=== PATIENT | male | born 1955 | race Caucasian/White ===

== ENCOUNTER 2019-02-03 16:07 | Inpatient (IN) ==
--- NOTE | 2019-02-03 17:09 | Emergency Department Note ---
ED Disposition Clinical Impression: Acute appendicitis Qualifiers: Acute appendicitis type: with localized peritonitis Appendicitis gangrene presence: without gangrene Appendicitis perforation presence: with perforation Appendicitis abscess presence: with abscess Qualified Code(s): K35.33 - Acute appendicitis with perforation and localized peritonitis, with abscess Disposition: Admitted As Inpatient Condition on Discharge: Fair - Critical Care Critical Care Time: No Attestation: On 02/03/19, the high probability of a clinically significant, sudden or life threatening deterioration of the following system(s) required my full and direct attention, intervention and personal management. The time I documented below is in addition to time spent performing reported procedures but includes the following listed in this critical care notation. Medical Decision Making - [place] Inquiry Pt receiving controlled substance: No Vital Signs: 02/03/19 16:22 02/03/19 17:52 02/03/19 19:13 Temperature 99.9 F H 99.9 F H Temperature Source Oral Oral Pulse Rate 80 Pulse Rate [Right Brachial] 108 H 80 Respiratory Rate 16 18 18 Blood Pressure 116/63 Blood Pressure [Right Arm] 116/63 116/63 Blood Pressure Mean [Right Arm] 80 80 Blood Pressure Source Automatic Cuff Blood Pressure Source [Right Arm] Automatic Cuff Automatic Cuff Blood Pressure Position Sitting Blood Pressure Position [Right Arm] Sitting Supine 02 Sat by Pulse Oximetry 98 99 Oxygen Delivery Method Room Air Room Air Room Air - Lab Data Lab Results 02/03/19 16:40: Amylase 32, Lipase 58 L Orders (Tests/Meds): ED MEDICATIONS Generic Name Dose Route Start Last Admin Trade Name Freq PRN Reason Stop Dose Admin Hydrocodone Bitart/Acetaminophen 1 - 2 tab 02/03/19 19:22 [place] 5/325mg Tablet PO 03/05/19 19:21 Q4HP PRN pain Cyclobenzaprine HCl 10 mg 02/03/19 21:00 Flexeril 10mg Tablet PO 03/05/19 20:59 TID ARIA Ampicillin Sodium/Sulbactam 100 mls @ 200 mls/hr 02/03/19 19:18 02/03/19 19:25 Sodium 3 gm/ Sodium Chloride IV 02/03/19 19:19 200 mls/hr ONCE ONE Administration Protocol Lactated Ringer's 1,000 mls @ 150 mls/hr 02/03/19 19:30 Lactated Ringer's 1000 Ml Bag IV 03/05/19 19:29 .Q6H40M ARIA Piperacillin Sod/Tazobactam 100 mls @ 200 mls/hr 02/03/19 19:30 Sod 4.5 gm/ Sodium Chloride IV 02/17/19 19:29 Q6H ARIA Protocol Morphine Sulfate 1 mg 02/03/19 19:24 Morphine 2mg/Ml Syringe IV 03/05/19 19:23 Q1HP PRN Moderate to Severe Pain Ondansetron HCl 4 mg 02/03/19 19:22 Zofran 4mg/2ml Vial IV 03/05/19 19:21 Q6HP PRN Nausea Discontinued Medications Generic Name Dose Route Start Last Admin Trade Name Freq PRN Reason Stop Dose Admin Sodium Chloride 1,000 mls @ 999 mls/hr 02/03/19 17:00 Sod Chlor 0.9% 1000ml Bag IV 02/03/19 18:00 .Q1H1M ARIA Morphine Sulfate 2 mg 02/03/19 19:20 Morphine 2mg/Ml Syringe IV 03/05/19 19:19 Q2HP PRN Moderate to Severe Pain ORDERS Category Date Time Status Basic Metabolic Panel Routine Lab 02/04/19 06:00 Ordered Complete Blood Count Auto Diff Routine Lab 02/04/19 06:00 Ordered - CT Data CT Scan: Abdomen, Pelvis Time Received: 17:[address] Reviewed: Yes: I discussed the CT results w/the radiologist, I have viewed the radiologist's interpretation Findings Narrative: FINDINGS: Study is performed without IV and oral contrast Lower thorax: There are atelectatic changes in the right lung base with a bandlike area of increased density in the right lower lobe with elevated right hemidiaphragm. This bandlike area could be related to an area of dense consolidation or some loculated fluid in the major fissure. The right hemidiaphragm is elevated. There is mild fatty liver infiltration. The gallbladder, spleen, adrenal glands, and pancreas have an unremarkable appearance. No renal or ureteral calculi. There stranding of the perinephric renal fat on both sides with bilateral exophytic hyperdensities of the kidneys measuring up to 1.5 cm in the upper pole anteriorly on the left and 1 cm in upper pole on the right. Exophytic isodense lesion is present in the lower pole on the right laterally at 1.6 cm possibly due to a cyst. There is loculated fluid with interspersed gas within the right pericolic gutter which extends from the cecal area of the right lower quadrant. What appears to represent the appendix is thickened which is contiguous with the collection ascending in the right pericolic gutter. This may represent appendicitis with perforation. The pericolic fluid collection extend cephalad for approximately 12 cm measuring up to 1.6 cm in thickness and 4 cm in AP dimension. There are fluid-filled loops of small bowel in the pelvis as well as air-fluid levels in the transverse colon and descending colon. The bowel is not significantly distended. Findings may represent ileus. There diverticulosis of the descending and sigmoid colon. No acute bony finding. The prostate is enlarged at 5 cm. Urinary bladder is decompressed. IMPRESSION: 1. Overall, the findings are suspicious for appendicitis with perforation with small right pericolic gutter abscess. These findings may be confirmed with repeat exam with both IV and oral contrast. 2. Elevated right hemidiaphragm with small amount of fluid in the right major fissure inferiorly versus dense consolidation with right basilar atelectasis. The 3. Bilateral complex renal nodules. Renal ultrasound suggested for further evaluation 4. Ileus Dictated by: Jamin Laguna MD 02/03/2019 17:40 Electronically signed by Jamin Laguna MD in [place] 02/03/2019 17:40 - Physician Consults Physician Consulted: Suleiman Time: 17:50 Reason -: Surgical Eval/Care Comment/Response: Call in surgical team. General Adult HPI - General Chief complaint: PAIN Stated complaint: Pain in Side/Fever/Nausea Time Seen by Provider: 02/03/19 17:09 Mode of Arrival: Ambulatory Limitations: No Limitations Description of Symptoms (Recalled from ER Triage Doc. by RN): Right side abdominal pain - History of Present Illness HPI narrative: Patient states he is sick since Saturday night. He has right-sided abdominal pain that hurts "with certain movements". He has had significant amount of diarrhea, 3 episodes today. No blood in his diarrhea. No vomiting. He has had a fever up to 102.5 [address] He saw Dr. Bush is a nurse practitioner in the office today and was sent to the lab for blood work. Then sent to the emergency room. - Related Data Home Medications Medication Instructions Recorded Confirmed Ciprofloxacin HCl [Cipro 500mg 500 mg PO BID 02/03/19 02/03/19 Tab] Cyclobenzaprine HCl 10 mg PO TID 02/03/19 02/03/19 [Cyclobenzaprine 10mg Tab] Allergies Allergy/AdvReac Type Severity Reaction Status Date / Time No Known Allergies Allergy Verified 02/03/19 16:[address] [facility] History - Hepatitis A Screen Drug use history?: No High risk sexual behaviors?: No History of sexually transmitted infection?: No Currently employed?: No Childcare worker?: No Do you have indoor plumbing?: Yes Do you have electricity?: Yes Attestation statement:: This patient has been screened for Hepatitis A risk factors. I have reviewed the patient's past medical history: Yes ROS Obtained: Yes All systems reviewed & no additional complaints - Constitutional Constitutional: Reports fever(s) - Cardiovascular Cardiovascular: Denies chest pain - Respiratory Respiratory: No dyspnea - Gastrointestinal Gastrointestingal: Reports: abdominal pain, diarrhea. Denies: bright red blood in stools, vomiting - Genitourinary Male Genitourinary: Denies difficulty urinating, Denies flank pain, Denies hematuria Physical Exam - General General appearance: alert, in no apparent distress - Head Head exam: atraumatic, normocephalic - Eye Eye exam: Present: normal appearance, EOMI - ENT ENT exam: Present: mucous membranes moist - Neck Neck exam: Present: normal inspection, trachea midline - Chest Chest inspection: Present: normal inspection, symmetric chest wall rise - Respiratory Respiratory exam: Present: normal lung sounds bilaterally. Absent: respiratory distress - Cardiovascular Cardiovascular exam: Present: regular rate, normal rhythm, normal heart sounds - Abdominal Exam Abdominal exam: Present: tenderness, guarding, normal bowel sounds. Absent: distention Abdominal tenderness: Present: RUQ, RLQ - Extremities Exam Extremities exam: Present: normal inspection - Back Exam Back exam: Absent: CVA tenderness (R), CVA tenderness (L) - Neurological Exam Neurological exam: Present: alert, oriented X3 - Psychiatric Psychiatric exam: Present: normal affect, normal mood
[2019-02-03 17:24] LABS: Amylase 32 U/L (25-115)
--- NOTE | 2019-02-03 20:55 | Operative Note ---
Date of procedure: 02/03/19 Pre-op Diagnosis:: Perforated appendicitis Post-op Diagnosis:: Perforated appendicitis with fulminant necrosis of the appendix and severe suppurative changes of all surrounding tissue Procedure performed:: Laparoscopic appendectomy Surgeon:: Chauncey Bearden MD MORTGAGE OR LOAN UNDERWRITER:: Ronald Correa Anesthesia: GETA Estimated blood loss (mL): 50 Operative findings:: Fulminant appendiceal necrosis with perforation and surrounding abscess cavity. Severe suppurative changes of colon and small bowel surrounding appendix. Small appendiceal stump appeared viable...controlled with Endoloops (x2). Serosal injury to cecum with patchy areas of "bruising". No definitive full- thickness necrosis. Operative note:: After informed consent was obtained the patient was taken to the operating room and placed in the supine position. General anesthesia was induced and his abdomen was prepped and draped in a sterile fashion. After infiltration with local anesthetic an infraumbilical incision was made. A Veress needle was placed in position. The abdomen was insufflated. A 12 mm optical trocar was placed in position. Under direct visualization a 5 mm trocar was placed in the suprapubic position and an additional 5 mm trocar was placed in the left lower quadrant. Evaluation of the right lower quadrant revealed severe suppurative changes surrounding the small bowel and colon. The appendix was not immediately visible and careful dissection was utilized to maneuver the periappendiceal tissue. Blunt dissection with the suction park keeper was utilized to free the tissue surrounding the appendix that was very posterior and embedded within periappendiceal tissue to include cecum and small bowel. The cecum and small bowel did have patchy suppurative changes and serosal rents. No full-thickness injury was noted. Patchy "bruising" of the cecum was noted. A fairly large pocket of purulence within the right flank was carefully suctioned and then copious irrigation were utilized. Essentially, all the irrigation was suctioned away from surrounding tissue. No additional pockets of purulence were visu alized. Fulminant appendiceal necrosis was noted. The base was transected with harmonic talib and the appendiceal tissue was from all surrounding tissue and placed in a retrieval bag. The appendix (appendiceal tissue) was then passed off for pathologic evaluation. The right lower quadrant was thoroughly irrigated. No active bleeding was noted. No obvious injury to the small bowel was noted. The appendiceal stump did appear to have enough viable tissue 2 accept Endoloops and these were placed in position (x2). Close inspection of the cecum did show minor serosal damage and "bruising". No definitive full-thickness necrosis was appreciable and the decision to forego ileocecectomy was made. Once again, the right lower quadrant was thoroughly irrigated. No obvious injury or additional pockets of purulence were noted. No active bleeding was noted. Pneumoperitoneum was released. The fascia at the infraumbilical incision was reapproximated with interrupted 0 Ethibond. The remaining trochars were removed and the wounds were packed open. Dressings were applied and the patient was transferred to recovery in stable condition. Condition: stable Disposition: PACU Specimens:: Appendix Complications:: No immediate
[2019-02-04 06:17] LABS: Basophils % 0.1 % (0.1-2.0); Eosinophils % 0.1 % (0.1-12.0); Hematocrit 41.6 % (42.0-52.0); Lymphocytes # 0.7 K/mm3 (0.7-4.5); Lymphocytes % 3.6 % (10-50); Mean Corpuscular HGB Conc 31.3 g/dL (31.8-35.4); Mean Corpuscular Volume 91.7 fl (80-94); Monocytes # 0.8 K/mm3 (0.1-1.0); Neutrophils # 17.4 K/mm3 (1.8-7.8); Neutrophils % 92.3 % (37.0-80.0); Platelet Count 283 K/mm3 (142-424); Red Blood Count 4.54 M/mm3 (4.60-6.20); Red Cell Distribution Width 13.9 % (11.5-17.5); White Blood Count 18.9 K/mm3 (4.8-10.8)
[2019-02-04 06:51] LABS: Anion Gap 11.9 mEq/L (5-15); Calcium 8.3 mg/dL (8.5-10.1)
--- NOTE | 2019-02-04 07:30 | Pharmacy Consult Notes ---
[facility] Pharmacy VTE Monitoring - Patient Demographics Admission date: 02/04/19 Report Date: 02/04/19 Time: 07:30 Allergies/Adverse Reactions: Patient Allergies No Known Allergies Allergy (Verified 02/03/19 16:28) Height: 1.83 m Weight: 97.069 kg Patient Problems: Current Active Problems Acute appendicitis (Acute) - VTE Risk Labs: VTE Related Lab Results Hct 41.6 % (42.0-52.0) L 02/04/19 06:03 Plt Count 283 K/mm3 (142-424) 02/04/19 06:03 BUN 38 mg/dL (7-18) H 02/04/19 06:03 Creatinine 1.92 mg/dL (0.70-1.30) H 02/04/19 06:03 Estimated Creat Clear 53 mL/min (50-200) 02/04/19 06:03 Was VTE Risk Assessment Performed: Yes VTE Score: 5 VTE Risk Level: Low Risk Clinical Trial Participant: No - Prophylaxis VTE Prophylaxis Ordered?: Yes Types of VTE Prophylaxis: IPCS Knee High Location of Applied Device: Bilateral Lower Extremeties
--- NOTE | 2019-02-04 08:11 | Progress Note ---
Subjective Patient reports: no new complaints Exam Vital signs and Labs for Last 24 Hours: Temp Pulse Resp BP Pulse Ox 98.6 F 84 18 142/78 H 89 L 02/04/19 04:25 02/04/19 04:25 02/04/19 04:25 02/04/19 04:25 02/04/19 06:30 Laboratory Results - last 24 hr 02/03/19 16:40: Amylase 32, Lipase 58 L 02/03/19 19:30: Urine Color Yellow, Urine Appearance Clear, Urine pH 5.0, Ur Specific [place] >= 1.030, Urine Protein 2+, Urine Glucose (UA) Negative, Urine Ketones Trace, Urine Blood 3+, Urine Nitrate Positive, Urine Bilirubin Negative, Urine Urobilinogen 1.0, Ur Leukocyte Esterase Trace, Urine RBC Occasional, Urine WBC 5-10, Ur Squamous Epith Cells 10-20, Urine Bacteria Trace 02/04/19 06:03: WBC 18.9 H, RBC 4.54 L, Hct 41.6 L, MCV 91.7, MCH 28.7, MCHC 31.3 L, RDW 13.9, Plt Count 283, MPV 8.0, Neut % (Auto) 92.3 H, Lymph % (Auto) 3.6 L, [place] % (Auto) 4.0, Eos % (Auto) 0.1, Baso % (Auto) 0.1, Neut # (Auto) 17.4 H, Lymph # (Auto) 0.7, [place] # (Auto) 0.8, Eos # (Auto) 0.0, Baso # (Auto) 0.0 02/04/19 06:03: Sodium 133 L, Potassium 3.9, Chloride 100, Carbon Dioxide 25, Anion Gap 11.9, BUN 38 H, Creatinine 1.92 H, Estimated Creat Clear 53, Estimated GFR 35 L, Est GFR ( Amer) 43 L, Glucose 160 H, Calcium 8.3 L I & O for Last 24 hours: Intake & Output 02/01/19 02/02/19 02/03/19 02/04/19 11:59 11:59 11:59 11:59 Intake Total 1652 / 1652 Output Total 400 / 400 Balance 1252 / 1252 Weight 215 lb - Constitutional no acute distress - *Routine Respiratory Exam Absent: respiratory distress - *Routine Cardiovascular Exam Present: RRR - *Routine Abdominal Exam Present: soft Comments: dressings intact. no cellulitis.
--- NOTE | 2019-02-04 08:24 | Progress Note ---
Subjective Patient reports: no new complaints Exam Vital signs and Labs for Last 24 Hours: Temp Pulse Resp BP Pulse Ox 98.6 F 84 18 142/78 H 89 L 02/04/19 04:25 02/04/19 04:25 02/04/19 04:25 02/04/19 04:25 02/04/19 06:30 Laboratory Results - last 24 hr 02/03/19 16:40: Amylase 32, Lipase 58 L 02/03/19 19:30: Urine Color Yellow, Urine Appearance Clear, Urine pH 5.0, Ur Specific [place] >= 1.030, Urine Protein 2+, Urine Glucose (UA) Negative, Urine Ketones Trace, Urine Blood 3+, Urine Nitrate Positive, Urine Bilirubin Negative, Urine Urobilinogen 1.0, Ur Leukocyte Esterase Trace, Urine RBC Occasional, Urine WBC 5-10, Ur Squamous Epith Cells 10-20, Urine Bacteria Trace 02/04/19 06:03: WBC 18.9 H, RBC 4.54 L, Hct 41.6 L, MCV 91.7, MCH 28.7, MCHC 31.3 L, RDW 13.9, Plt Count 283, MPV 8.0, Neut % (Auto) 92.3 H, Lymph % (Auto) 3.6 L, [place] % (Auto) 4.0, Eos % (Auto) 0.1, Baso % (Auto) 0.1, Neut # (Auto) 17.4 H, Lymph # (Auto) 0.7, [place] # (Auto) 0.8, Eos # (Auto) 0.0, Baso # (Auto) 0.0 02/04/19 06:03: Sodium 133 L, Potassium 3.9, Chloride 100, Carbon Dioxide 25, Anion Gap 11.9, BUN 38 H, Creatinine 1.92 H, Estimated Creat Clear 53, Estimated GFR 35 L, Est GFR ( Amer) 43 L, Glucose 160 H, Calcium 8.3 L I & O for Last 24 hours: Intake & Output 02/01/19 02/02/19 02/03/19 02/04/19 11:59 11:59 11:59 11:59 Intake Total 1652 / 1652 Output Total 400 / 400 Balance 1252 / 1252 Weight 215 lb - Constitutional no acute distress - *Routine Respiratory Exam Absent: respiratory distress - *Routine Cardiovascular Exam Present: RRR - *Routine Abdominal Exam Present: soft Comments: dressing intact Progress Note: A&P (1) Perforated appendicitis Status: Acute Assessment and plan: Overall, doing well status post laparoscopic appendectomy for perforated appendicitis with fulminant appendiceal necrosis and adjacent abscess. The patient understands the increased risk of complicated postoperative course secondary to nature of necrotic appendicitis and the significant changes to surrounding tissue (ex., possible need for drain placement; possible need for reoperation). Cautious advancement to clear liquids Increase ambulation Continue antibiotics Serial abdominal exams Serial laboratory evaluation Current Visit: Yes
[2019-02-04 11:52] LABS: Eosinophils % 1 % (0-3); Lymphocytes % 3 % (10-50); Monocytes % 5 % (2-9); Neutrophils % 87 % (42-76); Total Cells Counted 100
[2019-02-04 11:54] LABS: RBC Morphology Normal
[2019-02-05 06:59] LABS: Basophils % 0.1 % (0.1-2.0); Eosinophils % 0.1 % (0.1-12.0); Hematocrit 42.8 % (42.0-52.0); Lymphocytes # 1.3 K/mm3 (0.7-4.5); Lymphocytes % 7.4 % (10-50); Mean Corpuscular HGB Conc 30.3 g/dL (31.8-35.4); Mean Platelet Volume 7.6 fl (7.4-10.4); Monocytes # 1.1 K/mm3 (0.1-1.0); Monocytes % 6.5 % (1.7-9.3); Neutrophils # 15.1 K/mm3 (1.8-7.8); Neutrophils % 85.9 % (37.0-80.0); Platelet Count 342 K/mm3 (142-424); Red Blood Count 4.46 M/mm3 (4.60-6.20); Red Cell Distribution Width 14.2 % (11.5-17.5); White Blood Count 17.6 K/mm3 (4.8-10.8)
--- NOTE | 2019-02-05 07:11 | Progress Note ---
Subjective Patient reports: pain is less, diarrhea Narrative: some heartburn overnight...better now Exam Vital signs and Labs for Last 24 Hours: Temp Pulse Resp BP Pulse Ox 98.6 F 77 16 132/79 90 L 02/05/19 04:00 02/05/19 04:00 02/05/19 04:00 02/05/19 04:00 02/05/19 04:00 Laboratory Results - last 24 hr 02/04/19 06:03: Hgb 13.0 L D, Total Counted 100, Neutrophils % (Manual) 87 H, Band Neutrophils % 4.0, Lymphocytes % (Manual) 3 L, Monocytes % (Manual) 5, Eosinophils % (Manual) 1, Platelet Estimate Normal, RBC Morphology Normal I & O for Last 24 hours: Intake & Output 02/02/19 02/03/19 02/04/19 02/05/19 11:59 11:59 11:59 11:59 Intake Total 1652 / 1652 4315 / 4315 Output Total 400 / 400 500 / 500 Balance 1252 / 1252 3815 / 3815 Weight 215 lb 231 lb 1 oz - Constitutional no acute distress - *Routine Respiratory Exam Absent: respiratory distress - *Routine Cardiovascular Exam Present: RRR - *Routine Abdominal Exam Present: soft Progress Note: A&P (1) Perforated appendicitis Status: Acute Assessment and plan: Overall, doing very well postoperative day 2 status post laparoscopic appendectomy Continue IV antibiotics for now Follow-up morning labs May slowly advance diet later today Current Visit: Yes (2) Heartburn Status: Acute Assessment and plan: will begin PPI Current Visit: Yes (3) Diarrhea Status: Acute Assessment and plan: likely secondary to ileus resolution Current Visit: Yes
[2019-02-05 07:45] LABS: Anion Gap 11.9 mEq/L (5-15); Calcium 8.1 mg/dL (8.5-10.1)
[2019-02-05 09:59] LABS: Lymphocytes % 7 % (10-50); Monocytes % 5 % (2-9); Neutrophils % 88 % (42-76); Total Cells Counted 100
[2019-02-06 06:11] LABS: Basophils % 0.2 % (0.1-2.0); Eosinophils # 0.1 K/mm3 (0.0-0.4); Eosinophils % 0.8 % (0.1-12.0); Hematocrit 39.3 % (42.0-52.0); Hemoglobin 12.5 g/dL (14.1-18.0); Lymphocytes # 1.6 K/mm3 (0.7-4.5); Lymphocytes % 13.6 % (10-50); Mean Corpuscular HGB Conc 31.7 g/dL (31.8-35.4); Mean Corpuscular Volume 94.2 fl (80-94); Mean Platelet Volume 7.5 fl (7.4-10.4); Monocytes # 1.1 K/mm3 (0.1-1.0); Monocytes % 8.8 % (1.7-9.3); Neutrophils # 9.1 K/mm3 (1.8-7.8); Neutrophils % 76.5 % (37.0-80.0); Platelet Count 314 K/mm3 (142-424); Red Blood Count 4.17 M/mm3 (4.60-6.20); Red Cell Distribution Width 13.3 % (11.5-17.5); White Blood Count 11.9 K/mm3 (4.8-10.8)
[2019-02-06 06:21] LABS: Anion Gap 11.6 mEq/L (5-15); Calcium 8.1 mg/dL (8.5-10.1)
--- NOTE | 2019-02-06 07:17 | Progress Note ---
Subjective Patient reports: no new complaints, feels better Exam Vital signs and Labs for Last 24 Hours: Temp Pulse Resp BP Pulse Ox 98.8 F 73 16 140/79 90 L 02/06/19 04:00 02/06/19 04:00 02/06/19 04:00 02/06/19 04:00 02/06/19 04:00 Laboratory Results - last 24 hr 02/05/19 06:10: WBC 17.6 H, RBC 4.46 L, Hgb 13.0 L, Hct 42.8, MCV 96.0 H, MCH 29.1, MCHC 30.3 L, RDW 14.2, Plt Count 342, MPV 7.6, Neut % (Auto) 85.9 H, Lymph % (Auto) 7.4 L, [place] % (Auto) 6.5, Eos % (Auto) 0.1, Baso % (Auto) 0.1, Neut # (Auto) 15.1 H, Lymph # (Auto) 1.3, [place] # (Auto) 1.1 H, Eos # (Auto) 0.0, Baso # (Auto) 0.0, Total Counted 100, Neutrophils % (Manual) 88 H, Lymphocytes % (Manual) 7 L, Monocytes % (Manual) 5, Platelet Estimate Normal 02/05/19 06:10: Sodium 137, Potassium 3.9, Chloride 102, Carbon Dioxide 27, Anion Gap 11.9, BUN 42 H, Creatinine 1.49 H D, Estimated Creat Clear 74, Estimated GFR 47 L, Est GFR ( Amer) 57 L D, Glucose 109 H, Calcium 8.1 L 02/06/19 05:45: WBC 11.9 H D, RBC 4.17 L, Hgb 12.5 L, Hct 39.3 L, MCV 94.2 H, MCH 29.9, MCHC 31.7 L, RDW 13.3, Plt Count 314, MPV 7.5, Neut % (Auto) 76.5, Lymph % (Auto) 13.6, [place] % (Auto) 8.8, Eos % (Auto) 0.8, Baso % (Auto) 0.2, Neut # (Auto) 9.1 H, Lymph # (Auto) 1.6, [place] # (Auto) 1.1 H, Eos # (Auto) 0.1, Baso # (Auto) 0.0 02/06/19 05:45: Sodium 140, Potassium 3.6, Chloride 104, Carbon Dioxide 28, Anion Gap 11.6, BUN 27 H D, Creatinine 1.12 D, Estimated Creat Clear 99, Estimated GFR 66, Est GFR ( Amer) 80 D, Glucose 96, Calcium 8.1 L I & O for Last 24 hours: Intake & Output 02/03/19 02/04/19 02/05/19 02/06/19 11:59 11:59 11:59 11:59 Intake Total 1652 / 1652 4555 / 4555 4593 / 4593 Output Total 400 / 400 500 / 500 Balance 1252 / 1252 4055 / 4055 4593 / 4593 Weight 215 lb 231 lb 1 oz 231 lb 8 oz - *Routine Respiratory Exam Absent: respiratory distress - *Routine Cardiovascular Exam Present: RRR - *Routine Abdominal Exam Present: soft Progress Note: A&P (1) Perforated appendicitis Status: Acute Assessment and plan: Overall, doing well postoperative day 3 status post laparoscopic appendectomy. Continue antibiotics Slowly advance diet Decrease IV fluids Increase ambulation Current Visit: Yes (2) Heartburn Status: Acute Current Visit: Yes (3) Diarrhea Status: Acute Current Visit: Yes
--- NOTE | 2019-02-06 13:44 | Progress Note ---
[facility] Anesthesia Checklist - Structural Data Admitted From: Emergency Dept Planned Operative Procedure/s: lap appy Consent for Planned Operative Procedure(s) Verified: Yes - Airway Assessment C-Spine Mobility Assessed: Yes TMJ Mobility Assessed: Yes Dentition: Poor Dentition - Neurological Assessment Level of Consciousness: Awake, Alert, Appropriate - Anesthesia Plan Anesthesia Risk discussed: Yes Anesthesia Plan: Verified ASA Class: II Anesthesia Type: General [facility] History I have reviewed the patient's past medical history: Yes *Have you ever received a pneumonia vaccine?: No *Have you received a flu vaccine this season?: Yes Anesthesia experience/problems:: none - *Social History Substance Use Type: denies use *Occupational Status:: unemployed *Travel in the last 8 weeks: Inside the [place] Family Hx:: No significant family history
--- NOTE | 2019-02-06 13:46 | Progress Note ---
[facility] Anesthesia Record Part I Intake, IV Amount: 2,500 Estimated blood loss (mL): 0 Urine output (mL): 25 Blood Pressure: 104/79 SaO2: 95 Pulse Rate: 100 Respiratory Rate: 14 Temperature: 98.1 F Patient is:: Awake, Stable Stable to PACU at:: 21:05
--- NOTE | 2019-02-06 13:47 | Progress Note ---
[facility] Anesthesia Record Part II Discharge Time: 21:35 Destination: floor PACU nurse assessment reviewed?: Yes Patient Condition:: Good Anesthesia Complications:: None Swallowing reflex intact?: Yes Cyanosis?: No
[2019-02-07 05:50] LABS: Basophils # 0.1 K/mm3 (0-0.2); Basophils % 0.4 % (0.1-2.0); Eosinophils # 0.3 K/mm3 (0.0-0.4); Hematocrit 40.8 % (42.0-52.0); Hemoglobin 12.9 g/dL (14.1-18.0); Lymphocytes % 14.4 % (10-50); Mean Corpuscular HGB Conc 31.7 g/dL (31.8-35.4); Mean Platelet Volume 7.6 fl (7.4-10.4); Monocytes # 0.9 K/mm3 (0.1-1.0); Monocytes % 6.6 % (1.7-9.3); Neutrophils # 10.4 K/mm3 (1.8-7.8); Neutrophils % 76.6 % (37.0-80.0); Platelet Count 327 K/mm3 (142-424); Red Blood Count 4.34 M/mm3 (4.60-6.20); Red Cell Distribution Width 13.2 % (11.5-17.5); White Blood Count 13.6 K/mm3 (4.8-10.8)
[2019-02-07 06:07] LABS: Anion Gap 10.8 mEq/L (5-15)
[2019-02-07 06:08] LABS: Calcium 7.9 mg/dL (8.5-10.1)
--- NOTE | 2019-02-07 08:57 | Progress Note ---
Internal Medicine - PN: Subj *Date: 02/07/19 *Time: 08:57 Exam Vital signs and Labs for Last 24 Hours: Temp Pulse Resp BP Pulse Ox 97.7 F 84 21 145/89 H 94 L 02/07/19 07:54 02/07/19 07:54 02/07/19 07:54 02/07/19 07:54 02/07/19 07:54 Laboratory Results - last 24 hr 02/07/19 05:40: WBC 13.6 H, RBC 4.34 L, Hgb 12.9 L, Hct 40.8 L, MCV 94.0, MCH 29.8, MCHC 31.7 L, RDW 13.2, Plt Count 327, MPV 7.6, Neut % (Auto) 76.6, Lymph % (Auto) 14.4, [place] % (Auto) 6.6, Eos % (Auto) 2.0, Baso % (Auto) 0.4, Neut # (Auto) 10.4 H, Lymph # (Auto) 2.0, [place] # (Auto) 0.9, Eos # (Auto) 0.3, Baso # (Auto) 0.1 02/07/19 05:40: Sodium 136, Potassium 3.8, Chloride 102, Carbon Dioxide 27, Anion Gap 10.8, BUN 17 D, Creatinine 0.93, Estimated Creat Clear 111, Estimated GFR 82, Est GFR ( Amer) 99 D, Glucose 109 H, Calcium 7.9 L I & O for Last 24 hours: Intake & Output 02/04/19 02/05/19 02/06/19 02/07/19 23:59 23:59 23:59 23:59 Intake Total 3653 / 3653 5505 / 5505 3111 / 3111 667 / 667 Output Total 600 / 600 275 / 275 200 / 200 Balance 3053 / 3053 5230 / 5230 3111 / 3111 467 / 467 Weight 97.522 kg 104.808 kg 105.007 kg 105.375 kg Assessment and Plan (1) Perforated appendicitis Current visit: Yes Status: Acute Category: Medical Code(s): K35.32 - Acute appendicitis with perforation and localized peritonitis, without abscess (2) Heartburn Current visit: Yes Status: Acute Category: Medical Code(s): R12 - Heartburn (3) Diarrhea Current visit: Yes Status: Acute Category: Medical Code(s): R19.7 - Diarrhea, unspecified The patient's infection will respond to the chosen ABx?: Yes Is the patient receiving the right drug, dose, and route?: Yes Could a more targeted ABx be ordered?: No (MD WANTS TO CONTINUE ABX PER NOTE.)
--- NOTE | 2019-02-07 10:29 | Progress Note ---
Subjective Narrative: Mr. Dye is a 63-year-old male status post fundectomy for perforated appendicitis. Today is postoperative day #4. Continues to make good progress. Tolerating diet. Ambulating. Primary complaint is difficulty sleeping. WBC has slightly increased from 11,000-13,000. However, clinically doing well. Afebrile. Exam Vital signs and Labs for Last 24 Hours: Temp Pulse Resp BP Pulse Ox 97.7 F 84 21 145/89 H 94 L 02/07/19 07:54 02/07/19 07:54 02/07/19 07:54 02/07/19 07:54 02/07/19 08:00 Laboratory Results - last 24 hr 02/07/19 05:40: WBC 13.6 H, RBC 4.34 L, Hgb 12.9 L, Hct 40.8 L, MCV 94.0, MCH 29.8, MCHC 31.7 L, RDW 13.2, Plt Count 327, MPV 7.6, Neut % (Auto) 76.6, Lymph % (Auto) 14.4, [place] % (Auto) 6.6, Eos % (Auto) 2.0, Baso % (Auto) 0.4, Neut # (Auto) 10.4 H, Lymph # (Auto) 2.0, [place] # (Auto) 0.9, Eos # (Auto) 0.3, Baso # (Auto) 0.1 02/07/19 05:40: Sodium 136, Potassium 3.8, Chloride 102, Carbon Dioxide 27, Anion Gap 10.8, BUN 17 D, Creatinine 0.93, Estimated Creat Clear 111, Estimated GFR 82, Est GFR ( Amer) 99 D, Glucose 109 H, Calcium 7.9 L I & O for Last 24 hours: Intake & Output 02/04/19 02/05/19 02/06/19 02/07/19 11:59 11:59 11:59 11:59 Intake Total 1652 / 1652 4555 / 4555 4833 / 4833 214 / 2146 Output Total 400 / 400 500 / 500 200 / 200 Balance 1252 / 1252 4055 / 4055 4833 / 4833 1946 / 1946 Weight 97.522 kg 104.808 kg 105.007 kg 105.375 kg - *Routine Abdominal Exam Present: soft Comments: Abdomen soft. Nontender. Nondistended. Dressings dry. Wounds clean. Progress Note: A&P (1) Perforated appendicitis Status: Acute Current Visit: Yes (2) Heartburn Status: Acute Current Visit: Yes (3) Diarrhea Status: Acute Current Visit: Yes Assessment and Plan for All Diagnoses:: 1. Appendicitis. Perforation described as operative finding. Continues on IV antibiotics. Mr. Dye will receive his 11 AM dose of Zosyn. Transition to oral antibiotics. Discharge planning. Follow-up with Dr. Bearden week of discharge.
--- NOTE | 2019-02-07 10:37 | Discharge Summary ---
General - General Admission date:: 02/03/19 Discharge date: 02/07/19 HPI HPI: Mr. Dye is a 63-year-old male that presented to [facility] with acute appendicitis. Underwent appendectomy. Intraoperative findings include perforated appendix with moderatesevere inflammatory response right lower quadrant. Postoperative course remarkable for recovery of bowel function. Diet advanced appropriately. Pain well controlled. Significant improvement in WBC was demonstrated over the course of the first 3 postoperative days. Slight increase in WC from 11,000-13,000 on day of discharge. However, patient clinically doing well with continued antibiotics. Afebrile. Pain well controlled. No evidence of nausea or emesis. Time of discharge, patient was ambulating without difficulty and without complaint. Hospital Course Hospital Course: Hospital course see above. Objective Vital signs: Temp Pulse Resp BP Pulse Ox 97.7 F 84 21 145/89 H 94 L 02/07/19 07:54 02/07/19 07:54 02/07/19 07:54 02/07/19 07:54 02/07/19 08:00 - *Routine Respiratory Exam Present: CTA bilaterally - *Routine Cardiovascular Exam Present: RRR - *Routine Abdominal Exam Present: soft Comments: Nontender. Nondistended. Dressings dry. Results Completed studies during hospitalization [Text1]: CT A/P. Labs on day of discharge: Labs from last 24 hours 02/07/19 02/07/19 05:40 05:40 WBC 13.6 H RBC 4.34 L Hgb 12.9 L Hct 40.8 L MCV 94.0 MCH 29.8 MCHC 31.7 L RDW 13.2 Plt Count 327 MPV 7.6 Neut % (Auto) 76.6 Lymph % (Auto) 14.4 [place] % (Auto) 6.6 Eos % (Auto) 2.0 Baso % (Auto) 0.4 Neut # (Auto) 10.4 H Lymph # (Auto) 2.0 [place] # (Auto) 0.9 Eos # (Auto) 0.3 Baso # (Auto) 0.1 Sodium 136 Potassium 3.8 Chloride 102 Carbon Dioxide 27 Anion Gap 10.8 BUN 17 D Creatinine 0.93 Estimated Creat Clear 111 Estimated GFR 82 Est GFR ( Amer) 99 D Glucose 109 H Calcium 7.9 L DS: Diagnosis - Discharge Diagnosis (1) Perforated appendicitis Status: Acute (2) Heartburn Status: Acute (3) Diarrhea Status: Acute Discharge Plan - Patient Discharge Instructions ACTIVITY: Continue current activity, Ambulate as tolerated, No heavy lifting DIET: low fat, low cholesterol Patient Instructions: DI for Appendicitis -- Adult, Appendicitis, DI for an Appendectomy, DI for Surgical Site Infection, Appendicostomy, How to Care for a Surgical Wound - Follow up Plan Follow up with: German Bush MD [Primary Care Provider] - Chauncey Bearden MD [Staff Physician] - 1 week Home Medications: Home Medications Medication Instructions Recorded Confirmed Type Ciprofloxacin HCl [Cipro 500mg 500 mg PO BID 02/03/19 02/03/19 History Tab] Cyclobenzaprine HCl 10 mg PO TID 02/03/19 02/03/19 History [Cyclobenzaprine 10mg Tab] Lisinopril [Lisinopril 40mg Tablet] 40 mg PO DAILY 02/04/19 02/04/19 History Amoxicillin/Potassium Clav 1 tab PO Q12H 7 Days #14 tab 02/07/19 Rx [Augmentin 875-125 Tablet] Prescriptions/Medication Reconciliation: No Action Ciprofloxacin HCl [Cipro 500mg Tab] 500 mg PO BID Cyclobenzaprine HCl [Cyclobenzaprine 10mg Tab] 10 mg PO TID Lisinopril [Lisinopril 40mg Tablet] 40 mg PO DAILY - Problem Reconciliation Problems Reviewed?: Yes
== END 2019-02-07 11:38 | disposition home or self-care (01) | DRG 340 ==
LOC: ER 16:07 → SDC 19:15 → ER 19:15 → 2ND 20:47
PROVIDERS: ADMIT Family Medicine; ATTEND Surgery
DX: K35.32 Acute appendicitis with perforation, localized peritonitis, and gangrene, without abscess
CPT/HCPCS: 36415; 74000; 74018; 74176; 80048; 80053; 81001; 82150; 83690; 85007; 85025; 96365; 99284; J2405; J2543

== ENCOUNTER → 2019-02-20 09:34 | Outpatient (CLI) | payer OTHER, SELFPAY ==
[2019-02-20 10:23] LABS: Basophils # 0.1 K/mm3 (0-0.2); Eosinophils # 0.1 K/mm3 (0.0-0.4); Eosinophils % 1.9 % (0.1-12.0); Hematocrit 40.5 % (42.0-52.0); Hemoglobin 12.7 g/dL (14.1-18.0); Lymphocytes # 1.6 K/mm3 (0.7-4.5); Lymphocytes % 21.6 % (10-50); Mean Corpuscular HGB Conc 31.4 g/dL (31.8-35.4); Mean Corpuscular Hemoglobin 29.6 pg (27.0-31.2); Mean Corpuscular Volume 94.4 fl (80-94); Mean Platelet Volume 7.1 fl (7.4-10.4); Monocytes # 0.4 K/mm3 (0.1-1.0); Monocytes % 5.9 % (1.7-9.3); Neutrophils # 5.2 K/mm3 (1.8-7.8); Neutrophils % 69.5 % (37.0-80.0); Red Blood Count 4.29 M/mm3 (4.60-6.20); Red Cell Distribution Width 12.6 % (11.5-17.5); White Blood Count 7.4 K/mm3 (4.8-10.8)
[2019-02-20 10:37] LABS: Anion Gap 9.2 mEq/L (5-15); Blood Urea Nitrogen 12 mg/dL (7-18); Calcium 8.5 mg/dL (8.5-10.1); Carbon Dioxide 28 mmol/L (21.0-32.0); Chloride 102 mmol/L (98-107); Creatinine,Serum 0.87 mg/dL (0.70-1.30); Estimated Glomerular Filt Rate 88 ml/min (>60); GFR (African American) 107 ML/MIN (>60); Glucose 93 mg/dL (74-106); Potassium 4.2 mmoL/L (3.5-5.1); Sodium 135 mmol/L (136-145)
[2019-02-20 10:38] LABS: Platelet Count 608 K/mm3 (142-424)
== END ==
PROVIDERS: Visit Provider Surgery
DX: K35.80 Unspecified acute appendicitis (principal); K35.32 Acute appendicitis with perforation, localized peritonitis, and gangrene, without abscess
CPT/HCPCS: 36415; 80048; 85025

== ENCOUNTER → 2020-09-30 09:30 | Outpatient (CLI) | payer MEDICARE, OTHER, SELFPAY ==
--- NOTE | 2020-09-30 09:34 | CA_ITS ---
APPROVED REPORT Bonbon Cream Warmer: MYRIAM Laterality: Bilateral Study Quality: Good Indications: DIZZINESS,HTN Doppler Spectral Velocity Analysis dICA (R) 64.40/25.50 cm/s dICA (L) 75.00/30.80 cm/s Mj (R) 58.30/19.50 cm/s Mj (L) 55.90/19.00 cm/s pICA (R) 37.80/11.60 cm/s pICA (L) 58.40/23.10 cm/s dCCA (R) 76.30/19.70 cm/s dCCA (L) 79.60/26.30 cm/s pCCA (R) 89.10/19.70 cm/s pCCA (L) 81.30/19.80 cm/s Vert (R) 34.70/11.80 cm/s Vert (L) 27.50/7.50 cm/s ICA/CCA 0.80 ICA/CCA 0.90 Findings Duplex evaluation demonstrates stenosis of the right proximal internal carotid artery <20% with PSV <140 cm/sec, EDV <100 cm/sec, and IC/CC Ratio <4.0.Duplex evaluation demonstrates stenosis of the left proximal internal carotid artery <20% with PSV <140 cm/sec, EDV <100 cm/sec, and IC/CC Ratio <4.0.Antegrade flow seen bilateral vertebral arteries. Conclusion Duplex evaluation demonstrates stenosis of the right proximal internal carotid artery <20% with PSV <140 cm/sec, EDV <100 cm/sec, and IC/CC Ratio <4.0.Duplex evaluation demonstrates stenosis of the left proximal internal carotid artery <20% with PSV <140 cm/sec, EDV <100 cm/sec, and IC/CC Ratio <4.0.Antegrade flow seen bilateral vertebral arteries. Electronically signed by : Jamin Laguna MD 09/30/2020 15:05:28
== END ==
PROVIDERS: PCP Family Medicine; Visit Provider Nurse Practitioner Family
DX: R42 Dizziness and giddiness (principal); Z87.891 Personal history of nicotine dependence
CPT/HCPCS: 93880

== ENCOUNTER → 2020-10-17 09:06 | Outpatient (CLI) | payer MEDICARE, OTHER, SELFPAY ==
--- NOTE | 2020-10-17 09:11 | XR_ITS ---
PROCEDURE: XR KUB CLINICAL INDICATION: LT FLANK PAIN COMPARISON: CT CT ABDOMEN PELVIS WO CON from 02/03/2019 FINDINGS: Gas pattern-The bowel gas pattern is unremarkable. No obvious obstruction. Calcifications-No abnormal calcifications are evident. No obvious renal or ureteral calculi. Bones-No acute bony anomalies evident. There are degenerative changes in the lumbar spine. IMPRESSION: No acute findings. Dictated by: Jamin Laguna MD 10/17/2020 10:09 Jamin Laguna MD in [place] 10/17/2020 10:09
== END ==
PROVIDERS: PCP Nurse Practitioner Family; Visit Provider Nurse Practitioner Family
DX: R10.9 Unspecified abdominal pain (principal)
CPT/HCPCS: 74018

== ENCOUNTER 2024-04-23 11:45 | Emergency (ER) | payer MEDICARE, SELFPAY ==
[2024-04-23 11:46] VITALS: BP 153/85; PULSE 80; RESP 12; TEMP 36.8; O2SAT 97; BMI 30.3
--- NOTE | 2024-04-23 11:48 | ECG_ITS ---
APPROVED REPORT Exam: Resting ECG HR:86 bpm ECG Measurements Heart Rate [address] 172 P -3 QRSd 94 QRS -33 QT 361 T 58 QTc 405 Conclusion SINUS RHYTHM WITH FREQUENT VENTRICULAR PREMATURE COMPLEXES LEFT AXIS DEVIATION [QRS AXIS < -30] VOLTAGE CRITERIA FOR LVH [MEETS CRITERIA IN ONE OF: R(aVL), S(V1), R(V5), R(V5/V6)+S(V1)] NONSPECIFIC ST & T-WAVE ABNORMALITY ABNORMAL ECG UNCONFIRMED REPORT Electronically signed by : Ja Mims, 04/23/2024 15:34:12
[2024-04-23 11:57] VITALS: PULSE 80
--- NOTE | 2024-04-23 11:59 | XR_ITS ---
FINAL REPORT CLINICAL HISTORY: chest pain, soa, fatigue FINDINGS: A portable view of the chest was obtained. Cardiac and mediastinal silhouettes are within normal limits. Right basilar opacity is favored to represent atelectasis. There is either a small right pleural effusion or pleural scar. There is no pneumothorax. IMPRESSION: Right basilar opacity favored to represent atelectasis. Small right pleural effusion or pleural scar. Reviewed, Interpreted and Dictated by Lelia Jo MD Transcribed by Rizwana Mendoza Authenticated and [facility]
[2024-04-23] MEDS: BELLADONNA ALKALOIDS 60 ML ML PO (12:01)
[2024-04-23 12:03] LABS: Basophils # 0.1 K/mm3 (0-0.2); Basophils % 0.5 % (0.1-2.0); Eosinophils # 0.1 K/mm3 (0.0-0.4); Eosinophils % 1.3 % (0.1-12.0); Hematocrit 44.2 % (42.0-52.0); Hemoglobin 15.1 g/dL (14.1-18.0); Lymphocytes # 1.8 K/mm3 (0.7-4.5); Lymphocytes % 17.1 % (10-50); Mean Corpuscular HGB Conc 34.2 g/dL (31.8-35.4); Mean Corpuscular Hemoglobin 30.1 pg (27.0-31.2); Mean Platelet Volume 9.4 fl (7.4-10.4); Monocytes # 0.8 K/mm3 (0.1-1.0); Monocytes % 7.7 % (1.7-9.3); Neutrophils # 7.6 K/mm3 (1.8-7.8); Platelet Count 271 K/mm3 (142-424); Red Blood Count 5.02 M/mm3 (4.60-6.20); Red Cell Distribution Width 12.2 % (11.5-17.5); White Blood Count 10.3 K/mm3 (4.8-10.8)
--- NOTE | 2024-04-23 12:06 | ED_ITS ---
<Statement entered by Miguel Mims MD - 04/24/24 15:50> I was consulted by the DIRK, and we discussed the complexity of the problems being addressed. I approved the treatment and management plan for this patient's care in the emergency department, thus performing a substantive portion of the medical decision making. Miguel Mims MD, ANNE, FACEP Discharge Plan Disposition Patient Disposition: Home, Self-Care Condition: Good Prescriptions Prescriptions: New pantoprazole [Protonix] 40 mg tablet,delayed release (DR/EC) 40 mg PO DAILY Qty: 30 0RF No Action betamethasone valerate 0.1 % ointment 1 applic topical TID PRN (Reason: rash) Qty: 45 1RF lisinopril 40 mg tablet 40 mg PO DAILY Qty: 90 3RF Referrals Follow up/Referrals: Travis Manley II, MD [Staff Physician] - See instructions Gail Rodriguez APRN [Primary Care Provider] - See instructions Juan Lincoln MD [Staff Physician] - See instructions Activity Restrictions/Add. Instructions Additional Instructions/Restrictions: As we discussed I have referred you to both gastroenterology and cardiology. Please call and make an appointment for further evaluation of both your epigastric symptoms as well as cardiac risk stratification. I have sent Protonix to your pharmacy. Please take it in the evenings. Follow-up with your PCP if you have any new or no improvement of your symptoms or return to the ER as needed. Clinical Impressions Clinical Impression: Acute epigastric pain Print Language Print Language: Kazakh Discharge ED Provider: Miguel Mims General Adult HPI General Chief complaint: Chest Pain Stated complaint: chest pain Time Seen by Provider: 04/23/24 12:06 Mode of Arrival: Ambulatory Source of Information: Patient Limitations: No Limitations Description of Symptoms (Recalled from ER Triage Doc. by RN): pt comes in today for off and on epigastric pain thats worse when he eats, soa, and fatigue, pt pain doesnt radiate anywhere and pt only takes meds for htn. pt took one baby asa prior to arrival History of Present Illness HPI narrative: Patient presents for evaluation of epigastric chest/abdominal pain. Patient states that he has had intermittent epigastric abdominal pain that feels like a ball for several months. Patient states that it gets worse when he eats however there are no relieving factors. Patient does not have a known history of ulcer disease or heart disease denies radiation of the pain to his back or his arms but occasionally movement makes it worse. He denies fever chills hemoptysis hematochezia melena nausea vomiting diarrhea. Related Data Previous Rx's ?Medication ?Instructions ?Recorded betamethasone valerate 0.1 % 1 applic topical TID PRN rash #45 12/03/23 topical ointment grams lisinopril 40 mg tablet 40 mg PO DAILY Hypertension #90 12/03/23 tabs pantoprazole 40 mg tablet,delayed 40 mg PO DAILY #30 tabs 04/23/24 release (Protonix) Allergies Allergy/AdvReac Type Severity Reaction Status Date / Time No Known Allergies Allergy Verified 12/03/23 13:09 [facility] Disclaimer: The information contained in this section may have been updated after the patient was seen, as this information can be updated by other users. Medical History (Updated 04/23/24 @ 14:24 by DEEPALI Carlos) Hypertension Surgical History (Updated 12/03/23 @ 13:19 by Ashley Deutsch CMA) History of lung surgery History of appendectomy Family History (Updated 12/03/23 @ 13:20 by Ashley Deutsch CMA) Daughter Cancer, Onset Age: 16 Father Cancer Social History (Updated 12/03/23 @ 13:22 by Ashley Deutsch CMA) Smoking Status: Never smoker how long ago did patient quit smoking: April 2023 alcohol intake: never substance use type: denies use current occupational status: employed Travel in the last 8 weeks: None housing: house caffeine: Yes Have you lived/traveled outside [place] in past 30 days?: No Contact w/someone who lives/traveled outside US past 30 days?: No Exposure to someone with infectious disease in past 14 days?: No Do you have a fever (greater than 100.4 F or 38 C)?: No Have you tested positive for COVID-19: No Exposed to someone with COVID-19 in past 14 days?: No Do you have a sore throat?: No Do you have a cough?: No Do you have any weakness?: No Do you have any diarrhea?: No Are you experiencing any unusual bleeding?: No Do you have any muscle aches/pain?: No Do you have any abdominal pain?: No Are you experiencing loss of taste or smell?: No Other Medical History Have you received the Flu Vaccine for this season: Yes Have you received the Pneumonia Vaccine: Yes ROS Obtained: Yes Systems reviewed as appropriate & no additional complaints except as documented Physical Exam General General appearance: alert and in no apparent distress Respiratory Respiratory exam: Present normal lung sounds bilaterally Cardiovascular Cardiovascular exam: Present regular rate Neurological Exam Neurological exam: Present alert, oriented X3 and CN II-XII intact Medical Decision Making Medical Records Medical records reviewed: Yes I reviewed the patient's medical records. Screening: Per USPSTF and CDC recommendations, given the prevalence of disease in our region, it is our hospital?s policy to screen for HIV and viral Hepatitis for all patients aged 18 and over and those with ongoing risk factors. [place] Inquiry Pt receiving controlled substance: No Vital Signs: 04/23/24 11:46 04/23/24 11:57 04/23/24 13:03 Temperature 98.2 F Temperature Source Oral Pulse Rate 80 66 Pulse Rate [Left Radial] 80 Respiratory Rate 12 13 Blood Pressure 126/62 Blood Pressure [Right Arm] 153/85 H Blood Pressure Mean [Right Arm] 107 02 Sat by Pulse Oximetry 97 97 Oxygen Delivery Method Room Air 04/23/24 13:33 04/23/24 14:00 04/23/24 14:26 Temperature 98.1 F Temperature Source Pulse Rate 70 Pulse Rate [Left Radial] Respiratory Rate 18 15 20 Blood Pressure 152/86 H 141/84 H 136/79 Blood Pressure [Right Arm] Blood Pressure Mean [Right Arm] 02 Sat by Pulse Oximetry Oxygen Delivery Method Room Air Lab Data Lab results reviewed: Yes I reviewed the patient's lab results. Lab Results 04/23/24 11:50: WBC 10.3, RBC 5.02, Hgb 15.1, Hct 44.2, MCV 88.0, MCH 30.1, MCHC 34.2, RDW 12.2, Plt Count 271, MPV 9.4, Neut % (Auto) 73.0, Lymph % (Auto) 17.1, [place] % (Auto) 7.7, Eos % (Auto) 1.3, Baso % (Auto) 0.5, Neut # (Auto) 7.6, Lymph # (Auto) 1.8, [place] # (Auto) 0.8, Eos # (Auto) 0.1, Baso # (Auto) 0.1, Sodium 139, Potassium 4.1, Chloride 100, Carbon Dioxide 30, Anion Gap 13.1, BUN 18, Creatinine 0.90, Estimated Creat Clear 103, Estimated GFR 84, Est GFR ( Amer) 101, Glucose 118 H, Calcium 9.2, Total Bilirubin 1.3, AST 36, ALT 30, Alkaline Phosphatase 51, Troponin I < 0.01, Total Protein 7.7, Albumin 4.4, G lobulin 3.3 H, Albumin/Globulin Ratio 1.3, Lipase 55 04/23/24 11:50 04/23/24 11:50 Orders (Tests/Meds): ED MEDICATIONS Discontinued Medications Generic Name Dose Route Start Last Admin Trade Name Freq PRN Reason Stop Dose Admin Belladonna Alkaloids 60 ml 04/23/24 12:00 04/23/24 12:01 Belladonna Alkaloids 60 Ml Ml PO 04/23/24 12:01 60 ml ONCE ONE Administration ORDERS Category Date Time Status CXR --portable [XR chest portable] Stat Exams 04/23/24 11:59 Completed Complete Blood Count Auto Diff Stat Lab 04/23/24 11:50 Completed Comprehensive Metabolic Panel Stat Lab 04/23/24 11:50 Completed Lipase Stat Lab 04/23/24 11:50 Completed Troponin I Stat Lab 04/23/24 11:50 Completed HEART Score History (anamnesis): Slightly suspicious ECG: Normal Age: >65 years Risk factors: 1-2 risk factors Medical Decision Narrative: In summary patient is a 68-year-old male who presents to the emergency department for evaluation of epigastric chest/abdomen pain. Patient is hemodynamically stable upon arrival, afebrile. Physical exam is unremarkable and nonfocal including normal heart sounds normal breath sounds no epigastric tenderness or abdominal tenderness on palpation with normal bowel sounds no rebound or guarding no rigidity.. Differential diagnosis includes ACS versus esophageal spasm versus esophageal stricture versus gastritis versus pancreatitis etc. Initial workup will be conducted with hematologic labs plain film chest x-ray twelve-lead EKG.. Initial interventions include GI cocktail. Initial workup reviewed by me and his hematologic labs are nonactionable, my informal interpretation of his plain film chest x-ray shows no acute processes and his twelve-lead EKG shows normal sinus rhythm. Upon repeat evaluation patient had complete resolution of his symptoms after GI cocktail. Given this we have essentially ruled out any serious or life-threatening condition. Patient will benefit from both upper endoscopy/GI evaluation and cardiology dilation as she has had neither. I have started the patient on Protonix that he can start tomorrow. Thus patient is appropriate for discharge with follow-up with his PCP and referrals aforementioned. Critical Care Critical Care Time Critical Care Time: No
[2024-04-23 13:03] VITALS: BP 126/62; PULSE 66; RESP 13; O2SAT 97
[2024-04-23 13:33] VITALS: BP 152/86; RESP 18
[2024-04-23 13:59] LABS: Alanine Aminotransferase 30 U/L (12-78); Albumin Level 4.4 g/dl (3.5-5.0); Albumin/Globulin Ratio 1.3 (1.1-1.8); Alkaline Phosphatase 51 U/L (38-126); Anion Gap 13.1 mEq/L (5-15); Aspartate Amino Transferase 36 U/L (17-59); Bilirubin,Total 1.3 mg/dl (0.2-1.3); Blood Urea Nitrogen 18 mg/dl (9-20); Calcium 9.2 mg/dl (8.4-10.2); Carbon Dioxide 30 mmol/L (22.0-30.0); Chloride 100 mmol/L (98-107); Creatinine Clearance Estimated 103 mL/min (50-200); Estimated Glomerular Filt Rate 84 ml/min (>60); GFR (African American) 101 ML/MIN (>60); Globulin 3.3 g/dL (1.3-3.2); Glucose 118 mg/dl (74-100); Potassium 4.1 mmoL/L (3.5-5.1); Sodium 139 mmol/L (136-145); Total Protein,Serum 7.7 g/dl (6.3-8.2)
[2024-04-23 14:00] VITALS: BP 141/84; RESP 15
[2024-04-23 14:14] LABS: Lipase 55 U/L (23-300)
[2024-04-23 14:21] LABS: Troponin I < 0.01 ng/ml (0.00-0.034)
[2024-04-23 14:26] VITALS: BP 136/79; PULSE 70; RESP 20; TEMP 36.7; O2SAT 97
== END 2024-04-23 14:27 | disposition home or self-care (01) ==
PROVIDERS: Emergency Provider Student in an Organized Health Care Education/Training Program; PCP Nurse Practitioner Family
DX: R10.13 Epigastric pain (principal); R07.9 Chest pain, unspecified; R06.02 Shortness of breath; R53.83 Other fatigue
CPT/HCPCS: 71045; 80053; 83690; 84484; 85025; 93005; 99284

== ENCOUNTER 2024-07-08 11:18 | Outpatient (CLI) | payer MEDICARE, SELFPAY ==
[2024-07-08 14:10] LABS: Erythrocyte Sedimentation Rate 11 mm/hr (0-20)
[2024-07-08 14:59] LABS: 25-OH Vitamin D, Total 49.1 ng/mL (30-100)
[2024-07-08 15:27] LABS: Uric Acid 4.9 mg/dl (3.5-8.5)
[2024-07-09 14:34] LABS: Antinuclear Antibodies, IFA Positive (.)
== END 2024-07-08 23:59 | disposition home or self-care (01) ==
LOC: LAB.DROPOF 07-09 10:36
PROVIDERS: PCP Nurse Practitioner Family; Visit Provider Nurse Practitioner Family
DX: E55.9 Vitamin D deficiency, unspecified (principal); L40.9 Psoriasis, unspecified; M79.604 Pain in right leg; M79.605 Pain in left leg
CPT/HCPCS: 82306; 84550; 85651; 86038; 86431